=== PATIENT | female | born 1950 | race Caucasian/White ===

== ENCOUNTER 2019-03-21 18:34 | Emergency (ER) | payer MEDICARE, OTHER ==
--- NOTE | 2019-03-21 18:47 | ER Document Report ---
ED Medical Screen (RME) - General Chief Complaint: S/S of Possible Stroke Stated Complaint: POSSIBLE STROKE Time Seen by Provider: 03/21/19 18:45 Primary Care Provider: JAYSON NESBITT [Primary Care Provider] - Follow up as needed Mode of Arrival: Wheelchair Information source: Patient Notes: Patient presents to the emergency department with complaints of left arm numb a nd feeling weak and dizzy today. Reports left arm was normal last night but it felt better today at approximately 2:00 she started feeling weak and dizzy. No complaints of vomiting diarrhea. Patient has had multiple strokes in the past. Son reports patient's voice is slurred. I have greeted and performed a rapid initial assessment of this patient. A comprehensive ED assessment and evaluation of the patient, analysis of test results and completion of the medical decision making process will be conducted by additional ED providers. Dictation of this chart was performed using voice recognition software; therefore, there may be some unintended grammatical errors. TRAVEL OUTSIDE OF THE [place] IN LAST 30 DAYS: No - Related Data Allergies/Adverse Reactions: fish oil Allergy (Verified 03/21/19 18:35) Physical Exam - Vital signs Vitals: Temp Pulse Resp BP Pulse Ox 97.6 F 75 16 147/66 H 96 03/21/19 18:36 03/21/19 18:36 03/21/19 18:36 03/21/19 18:36 03/21/19 18:36 Course - Vital Signs Vital signs: Temp Pulse Resp BP Pulse Ox 97.6 F 75 16 147/66 H 96 03/21/19 18:36 03/21/19 18:36 03/21/19 18:36 03/21/19 18:36 03/21/19 18:36 Doctor's Discharge - Discharge Referrals: JAYSON NESBITT [Primary Care Provider] - Follow up as needed
--- NOTE | 2019-03-21 19:08 | RADIOLOGY REPORT (SQ) ---
EXAM DESCRIPTION: CT HEAD WITHOUT COMPLETED DATE/TIME: 03/21/2019 6:55 pm REASON FOR STUDY: stroke COMPARISON: None. TECHNIQUE: Axial images acquired through the brain without intravenous contrast. Images reviewed wi th bone, brain and subdural windows. Additional sagittal and coronal reconstructions were generated. Images stored on PACS. All CT scanners at this facility use dose modulation, iterative reconstruction, and/or weight based d osing when appropriate to reduce radiation dose to as low as reasonably achievable (ALARA). [facility]: Dose Right [facility]: CareDose [facility]: Dose Right [facility]: Teradose 4D [facility]: Smart Viropro RADIATION DOSE: CT Rad equipment meets quality standard of care and radiation dose reduction techniq ues were employed. CTDIvol: 53.2 mGy. DLP: 1017 mGy-cm. mGy. LIMITATIONS: None. FINDINGS: VENTRICLES: Normal size and contour. CEREBRUM: No masses. No hemorrhage. No midline shift. Small area of asymmetric hypoattenuation of the posterior left frontal parietal region. Few scattered areas of low density in the white matter mo st likely chronic small vessel ischemic changes. CEREBELLUM: No masses. No hemorrhage. No alteration of density. No evidence for acute infarction. EXTRAAXIAL SPACES: No fluid collections. No masses. ORBITS AND GLOBE: No intra- or extraconal masses. Normal contour of globe without masses. CALVARIUM: No fracture. PARANASAL SINUSES: No fluid or mucosal thickening. SOFT TISSUES: No mass or hematoma. OTHER: No other significant finding. IMPRESSION: 1. Small asymmetric area of hypoattenuation in the left frontoparietal region which may represent age -indeterminate infarct. 2. Mild chronic microvascular ischemic disease. EVIDENCE OF ACUTE STROKE: NO. COMMENT: This report was called to Dr. Andrews at19:03 on 03/21/2019. Quality ID # [id number]: Final reports with documentation of one or more dose reduction techniques (e.g., Au tomated exposure control, adjustment of the mA and/or kV according to patient size, use of iterative reconstruction technique) TECHNICAL DOCUMENTATION: JOB ID: [id number]- All Rights Reserved Reading location - IP/workstation name: [email or web address]
--- NOTE | 2019-03-21 19:08 | RADIOLOGY REPORT (SQ) ---
EXAM DESCRIPTION: CHEST SINGLE VIEW COMPLETED DATE/TIME: 03/21/2019 7:02 pm REASON FOR STUDY: stroke COMPARISON: None. EXAM PARAMETERS: NUMBER OF VIEWS: One view. TECHNIQUE: Single frontal radiographic view of the chest acquired. RADIATION DOSE: NA LIMITATIONS: None. FINDINGS: LUNGS AND PLEURA: No opacities, masses or pneumothorax. No pleural effusion. MEDIASTINUM AND HILAR STRUCTURES: No masses. Contour normal. HEART AND VASCULAR STRUCTURES: Heart normal in size. Normal vasculature. BONES: No acute findings. HARDWARE: None in the chest. OTHER: No other significant finding. IMPRESSION: NO ACUTE RADIOGRAPHIC FINDING IN THE CHEST. TECHNICAL DOCUMENTATION: JOB ID: [id number] [employer]- All Rights Reserved Reading location - IP/workstation name: [email or web address]
[2019-03-21 19:21] LABS: ABSOLUTE BASOPHILS # (AUTO) 0.1 10^3/uL (0.0-0.2); ABSOLUTE EOSINOPHILS # (AUTO) 0.2 10^3/uL (0.0-0.6); ABSOLUTE LYMPHOCYTES (AUTO) 2.4 10^3/uL (0.5-4.7); ABSOLUTE MONOCYTES (AUTO) 0.9 10^3/uL (0.1-1.4); ABSOLUTE NEUT (AUTO) 7.1 10^3/uL (1.7-8.2); BASOPHILS % (AUTO) 0.9 % (0-2); EOSINOPHILS % (AUTO) 2.2 % (0-6); HEMATOCRIT 36.9 % (36.0-47.0); HEMOGLOBIN 12.6 g/dL (12.0-15.5); LYMPHOCYTES % (AUTO) 22.5 % (13-45); MEAN CORPUSCULAR HGB CONC 34.2 g/dL (32.0-36.0); MEAN CORPUSCULAR VOLUME 85 fl (80-97); MONOCYTES % (AUTO) 8.1 % (3-13); PLATELET COUNT 262 10^3/uL (150-450); RED BLOOD COUNT 4.35 10^6/uL (3.72-5.28); RED CELL DISTRIBUTION WIDTH 12.8 % (11.5-14.0); SEGMENTED NEUTROPHILS % (AUTO) 66.3 % (42-78); TOTAL CELLS COUNTED % (AUTO) 100 %; WHITE BLOOD COUNT 10.7 10^3/uL (4.0-10.5)
[2019-03-21 19:23] LABS: INTERNATIONAL RATION (INR) 0.91; PROTHROMBIN TIME 12.7 SEC (11.4-15.4)
[2019-03-21 19:24] LABS: PARTIAL THROMBOPLASTIN TIME 32.3 SEC (23.5-35.8)
[2019-03-21 19:39] LABS: ALANINE AMINOTRANSFERASE 44 U/L (9-52); ALBUMIN 4.3 g/dL (3.5-5.0); ALKALINE PHOSPHATASE 101 U/L (38-126); ANION GAP 10 (5-19); ASPARTATE AMINO TRANSFERASE 33 U/L (14-36); BILIRUBIN,DIRECT 0.2 mg/dL (0.0-0.4); BILIRUBIN,TOTAL 0.4 mg/dL (0.2-1.3); BLOOD UREA NITROGEN 27 mg/dL (7-20); CALCIUM 9.6 mg/dL (8.4-10.2); CARBON DIOXIDE 30 mmol/L (22-30); CHLORIDE 94 mmol/L (98-107); CREATINE KINASE 94 U/L (30-135); GLUCOSE 130 mg/dL (75-110); POTASSIUM 3.6 mmol/L (3.6-5.0); SODIUM 134.2 mmol/L (137-145); TOTAL PROTEIN 7.4 g/dL (6.3-8.2)
[2019-03-21 19:40] VITALS: BP 147/66
[2019-03-21 19:51] LABS: CREATINE KINASE MB 0.74 ng/mL (<4.55)
[2019-03-21 19:52] LABS: TROPONIN I < 0.012 ng/mL
[2019-03-21] MEDS ORDERED: NORMAL SALINE 1000 ML 500 ML IV ONE (19:57)
--- NOTE | 2019-03-21 20:22 | ER Document Report ---
ED General - General Chief Complaint: S/S of Possible Stroke Stated Complaint: POSSIBLE STROKE Time Seen by Provider: 03/21/19 18:45 Primary Care Provider: JAYSON NESBITT [NO LOCAL MD] - Follow up tomorrow Mode of Arrival: Wheelchair Notes: Patient is a 69-year-old female with a past medical history of prior TIAs and CVA, history of hypertension, presents with general weakness, slowing or slurr ing of her speech, and feeling generally fatigued. Symptoms started earlier today, gradual in onset, progressively worsening. Regarded as severe when their maximal intensity although now currently completely resolved after drinking Gatorade. Patient and family at bedside states that she has had similar symptoms in the past he has become dehydrated and believe this was what was going on as her symptoms are completely resolved after receiving oral rehydration as provided by family. Symptoms were exacerbated by being outside in the heat per patient and family. She denies that any point she had focal weakness or numbness. She has not seen her primary care doctor regarding today's concerns. Denies any chest pain or shortness of breath. States "I feel completely fine" when I asked how she is doing currently. TRAVEL OUTSIDE OF THE [place] IN LAST 30 DAYS: No - Related Data Allergies/Adverse Reactions: fish oil Allergy (Verified 03/21/19 18:35) Past Medical History - General Information source: Patient - Social History Smoking Status: Never Smoker Frequency of alcohol use: None Drug Abuse: None Lives with: Family Family History: Reviewed & Not Pertinent Patient has suicidal ideation: No Patient has homicidal ideation: No Renal/ Medical History: Denies: Hx Peritoneal Dialysis Review of Systems - Review of Systems Notes: Constitutional: Negative for fever. Positive for fatigue HENT: Negative for sore throat. Eyes: Negative for visual changes. Cardiovascular: Negative for chest pain. Respiratory: Negative for shortness of breath. Gastrointestinal: Negative for abdominal pain, vomiting or diarrhea. Genitourinary: Negative for dysuria. Musculoskeletal: Negative for back pain. Skin: Negative for rash. Neurological: Negative for headaches, weakness or numbness. 10 point ROS negative except as marked above and in HPI. Physical Exam - Vital signs Vitals: Temp Pulse Resp BP Pulse Ox 97.6 F 75 16 147/66 H 96 03/21/19 18:36 03/21/19 18:36 03/21/19 18:36 03/21/19 18:36 03/21/19 18:36 Interpretation: Hypertensive Notes: PHYSICAL EXAMINATION: GENERAL: Well-appearing, well-nourished and in no acute distress. HEAD: Atraumatic, normocephalic. EYES: Pupils equal round and reactive to light, extraocular movements intact, sclera anicteric, conjunctiva are normal. ENT: nares patent, oropharynx clear without exudates. Moist mucous membranes. NECK: Normal range of motion, supple without lymphadenopathy LUNGS: Breath sounds clear to auscultation bilaterally and equal. No wheezes rales or rhonchi. HEART: Regular rate and rhythm without murmurs ABDOMEN: Soft, nontender, normoactive bowel sounds. No guarding, no rebound. No masses appreciated. EXTREMITIES: Normal range of motion, no pitting or edema. No cyanosis. NEUROLOGICAL: Face symmetric. Tongue protrudes midline. Extraocular motions intact. Pupils are 2 mm and equally reactive. Normal speech, normal gait. 5 out of 5 strength in both the distal and proximal upper and lower extremities bilaterally. Sensation is grossly intact throughout. Finger to nose testing normal. Pronator drift normal. PSYCH: Normal mood, normal affect. SKIN: Warm, Dry, normal turgor, no rashes or lesions noted. Course - Re-evaluation Re-evalutation: 03/21/19 20:26 Patient presents with feeling lightheaded, weak and dizzy. States that symptoms started earlier today, progressed throughout the day and actually resolved shortly after she got here to the emergency department after her son bought her a Gatorade. She states upon drinking this beverage she began to feel completely better and now denies any symptoms of any kind. She and her son at the bedside both report that she is acting completely at her baseline. The patient has no neurologic deficits of any kind on exam, NIH stroke scale is 0. Her labs are notable for mild prerenal azotemia consistent with probable dehydration as the etiology of patient's symptoms prior to arriving at the hospital today. The patient never noted any focal symptoms of any kind and I do not believe that she was having a TIA or stroke event at any time. Patient and family likewise agree stating that they did not think this was going on either when they came to the emergency department and are unsure of why a code stroke was called on the patient in triage. Of note, triage documentation likewise does not note focal symptoms. CT of the head obtained in triage shows an age-indeterminate infarction but again her symptoms and history are not consistent with an acute stroke and she does not have any symptoms at the time of my evaluation to suggest that this is an acute infarction. She likewise has a history of multitude of TIAs and strokes in the past this is likely an old finding. At this time will discharge with return precautions and follow-up recommendations. Verbal discharge instructions given a the bedside and opportunity for questions given. Medication warnings reviewed. Patient is in agreement with this plan and has verbalized understanding of return precautions and the need for primary care follow-up in the next 24-72 hours. - Vital Signs Vital signs: Temp Pulse Resp BP Pulse Ox 97.6 F 75 16 147/66 H 96 03/21/19 18:36 03/21/19 19:38 03/21/19 19:38 03/21/19 19:38 03/21/19 19:38 - Laboratory Result Diagrams: 03/21/19 19:06 03/21/19 19:06 Laboratory results interpreted by me: 03/21/19 03/21/19 19:06 19:06 WBC 10.7 H Sodium 134.2 L Chloride 94 L BUN 27 H Creatinine 1.37 H Est GFR ( Amer) 46 L Est GFR (Non-Af Amer) 38 L Glucose 130 H - Diagnostic Test Radiology reviewed: Image reviewed, Reports reviewed Radiology results interpreted by me: 03/22/19 04:31 CT head: No acute intercranial bleed or mass Chest x-ray: No acute infiltrate - EKG Interpretation by Me Additional EKG results interpreted by me: 03/22/19 04:31 Sinus rhythm, rate 66, no ST elevations or depressions, QTC is 426. Discharge - Discharge Clinical Impression: Weakness, Dehydration, Prerenal azotemia Fatigue Qualifiers: Fatigue type: unspecified Qualified Code(s): R53.83 - Other fatigue Condition: Good Disposition: HOME, SELF-CARE Additional Instructions: You were seen today for lightheadedness/dizziness. The exact cause of your symptoms is likely related to dehydration although this is not a definitive diagnosis. But your workup here is reassuring without any concerning findings. Please follow closely with your primary care physician in the next 1-3 days. Return if you pass out, have additional episodes of lightheadedness, develop weakness/numbness, have persistent vomiting, chest pain, shortness of breath or any other symptoms that are concerning to you. Please be sure to drink plenty of fluids as your labs do suggest dehydration as part of the reason you are feeling the way were today. Referrals: LOCALMD,NO [NO LOCAL MD] - Follow up tomorrow
--- NOTE | 2019-03-21 23:13 | EKG REPORT ---
SEVERITY:- NORMAL ECG - SINUS RHYTHM : Confirmed by: Steffen Castaneda MD 21-Mar-2019 23:12:24
== END 2019-03-21 20:48 | disposition home or self-care (01) ==
LOC: ER 18:34
DX: R79.89 Other specified abnormal findings of blood chemistry (principal); R53.83 Other fatigue; E86.0 Dehydration; R53.1 Weakness
CPT/HCPCS: 93005; 99285; 36415; 82553; 82550; 85025; 85610; 85730; 80053; 84484; 71045; 70450; 93010; J7030

== ENCOUNTER 2019-04-02 03:15 | Emergency (ER) | payer MEDICARE, OTHER ==
[2019-04-02 03:27] VITALS: BP 138/72
[2019-04-02 05:36] LABS: APPEARANCE,URINE SLIGHTLY-CLOUDY; BILIRUBIN,URINE NEGATIVE (NEGATIVE); COLOR,URINE YELLOW; GLUCOSE, URINE >=500 mg/dL (NEGATIVE); KETONES,URINE NEGATIVE (NEGATIVE); LEUKOCYTE ESTERASE,URINE NEGATIVE (NEGATIVE); NITRITE,URINE NEGATIVE (NEGATIVE); PROTEIN,URINE 30 mg/dL (NEGATIVE); URINE SPECIFIC GRAVITY 1.017; UROBILINOGEN,URINE NEGATIVE mg/dL (<2.0)
[2019-04-02] MEDS ORDERED: NORMAL SALINE 1000 ML 1,000 ML IV ONE (07:47)
[2019-04-02] MEDS ORDERED: METHOCARBAMOL INJ/PF 1000 MG/10 ML SDV IV ONE (07:47)
[2019-04-02] MEDS ORDERED: ONDANSETRON HCL INJ/PF 4 MG/2 ML SDV IV ONE (07:47)
[2019-04-02] MEDS ORDERED: MORPHINE SULFATE 10 MG/ML INJ IV ONE (07:47)
[2019-04-02 08:16] LABS: ABSOLUTE BASOPHILS # (AUTO) 0.1 10^3/uL (0.0-0.2); ABSOLUTE EOSINOPHILS # (AUTO) 0.2 10^3/uL (0.0-0.6); ABSOLUTE LYMPHOCYTES (AUTO) 1.9 10^3/uL (0.5-4.7); ABSOLUTE MONOCYTES (AUTO) 0.4 10^3/uL (0.1-1.4); ABSOLUTE NEUT (AUTO) 4.8 10^3/uL (1.7-8.2); EOSINOPHILS % (AUTO) 3.1 % (0-6); HEMATOCRIT 36.3 % (36.0-47.0); HEMOGLOBIN 12.6 g/dL (12.0-15.5); LYMPHOCYTES % (AUTO) 25.3 % (13-45); MEAN CORPUSCULAR HEMOGLOBIN 29.4 pg (27.0-33.4); MEAN CORPUSCULAR HGB CONC 34.7 g/dL (32.0-36.0); MEAN CORPUSCULAR VOLUME 85 fl (80-97); MONOCYTES % (AUTO) 5.2 % (3-13); PLATELET COUNT 188 10^3/uL (150-450); RED BLOOD COUNT 4.28 10^6/uL (3.72-5.28); RED CELL DISTRIBUTION WIDTH 12.5 % (11.5-14.0); SEGMENTED NEUTROPHILS % (AUTO) 65.4 % (42-78); TOTAL CELLS COUNTED % (AUTO) 100 %; WHITE BLOOD COUNT 7.3 10^3/uL (4.0-10.5)
[2019-04-02 08:38] LABS: ALANINE AMINOTRANSFERASE 30 U/L (9-52); ALBUMIN 4.1 g/dL (3.5-5.0); ALKALINE PHOSPHATASE 101 U/L (38-126); ANION GAP 7 (5-19); ASPARTATE AMINO TRANSFERASE 24 U/L (14-36); BILIRUBIN,DIRECT 0.2 mg/dL (0.0-0.4); BILIRUBIN,TOTAL 0.5 mg/dL (0.2-1.3); BLOOD UREA NITROGEN 24 mg/dL (7-20); CALCIUM 9.8 mg/dL (8.4-10.2); CARBON DIOXIDE 29 mmol/L (22-30); CHLORIDE 103 mmol/L (98-107); CREATINE KINASE 44 U/L (30-135); GLUCOSE 256 mg/dL (75-110); POTASSIUM 4.4 mmol/L (3.6-5.0); TOTAL PROTEIN 7.5 g/dL (6.3-8.2)
[2019-04-02 09:14] LABS: APPEARANCE,URINE CLEAR; BILIRUBIN,URINE NEGATIVE (NEGATIVE); COLOR,URINE STRAW; GLUCOSE, URINE >=500 mg/dL (NEGATIVE); KETONES,URINE NEGATIVE (NEGATIVE); LEUKOCYTE ESTERASE,URINE NEGATIVE (NEGATIVE); NITRITE,URINE NEGATIVE (NEGATIVE); PROTEIN,URINE 30 mg/dL (NEGATIVE); URINE SPECIFIC GRAVITY 1.014; UROBILINOGEN,URINE NEGATIVE mg/dL (<2.0)
--- NOTE | 2019-04-02 09:28 | ER Document Report ---
Entered by MELI NOLEN SCRIBE 04/02/19 0800 Acting as scribe for:OPAL MEHTA MD ED General - General Chief Complaint: Back Pain Stated Complaint: BACK PAIN Time Seen by Provider: 04/02/19 07:10 Notes: Patient is a 69-year-old female with a history of a stroke in July that left her with right-sided deficits presenting to the emergency department complaining of back pain with associated spasms. Patient states that this began yesterday and her spasms started when she laid down, "it was hurting more yesterday but pain is still present". Patient states that she has been helping move boxes all week. Patient states that she went to [facility] in [place] 2 nights ago, they diagnosed her with having a urinary tract infection. Patient states that she was prescribed Keflex for. Patient states that she is currently taking medicine for her hyperlipidemia, hypertension, diabetes mellitus, Protonix for GERD. TRAVEL OUTSIDE OF THE [place] IN LAST 30 DAYS: No - Related Data Allergies/Adverse Reactions: fish oil Allergy (Verified 03/21/19 18:35) Past Medical History - General Information source: Patient - Social History Smoking Status: Never Smoker Cigarette use (# per day): No Chew tobacco use (# tins/day): No Frequency of alcohol use: None Drug Abuse: None Family History: Reviewed & Not Pertinent Patient has suicidal ideation: No Patient has homicidal ideation: No Past Surgical History: Reports: Hx Appendectomy, Hx Hysterectomy, Hx Orthopedic Surgery - 6 back surgeries, Other - Esophageal dilatation Review of Systems - Review of Systems Constitutional: No symptoms reported EENT: No symptoms reported Cardiovascular: No symptoms reported Respiratory: No symptoms reported Gastrointestinal: No symptoms reported Genitourinary: No symptoms reported Female Genitourinary: No symptoms reported Musculoskeletal: See HPI, Back pain, Other - spasms Skin: No symptoms reported Hematologic/Lymphatic: No symptoms reported Neurological/Psychological: No symptoms reported -: Yes All other systems reviewed and negative Physical Exam - Vital signs Vitals: Temp Pulse Resp BP Pulse Ox 97.8 F 86 16 138/72 H 98 04/02/19 03:25 04/02/19 03:25 04/02/19 03:25 04/02/19 03:25 04/02/19 03:25 - Notes Notes: Physical Exam: General: Alert, obese. HEENT: Normocephalic. Atraumatic. PERRL. Extraocular movements intact. Oropharynx clear. Neck: Supple. Non-tender. Respiratory: No respiratory distress. Clear and equal breath sounds bilaterally. Cardiovascular: Regular rate and rhythm. Abdominal: Normal Inspection. Non-tender. No distension. Normal Bowel Sounds. Back: Paravertebral tenderness to palpation. Lumbar 3-5 tenderness to palpation. No deformity or step off. Extremities: Moves all four extremities. Upper extremities: Normal inspection. Normal ROM. Lower extremities: Normal inspection. No edema. Normal ROM. Neurological: Normal cognition. AAOx4. Normal speech. Psychological: Normal affect. Normal Mood. Skin: Warm. Dry. Normal color. Course - Re-evaluation Re-evalutation: 04/02/19 09:44 Review of lab work shows that the patient continues to have prerenal azotemia, slightly better than when she was here of days ago, but she does admit that she has not been drinking water like she is instructed. She has received 1 L of IV fluids, 1 g of Robaxin IV. She is feeling better. - Vital Signs Vital signs: Temp Pulse Resp BP Pulse Ox 97.8 F 86 16 138/72 H 98 04/02/19 03:25 04/02/19 03:25 04/02/19 03:25 04/02/19 03:25 04/02/19 03:25 - Laboratory Result Diagrams: 04/02/19 08:06 04/02/19 08:06 Laboratory results interpreted by me: 04/02/19 04/02/19 04/02/19 05:23 08:06 08:51 BUN 24 H Est GFR (Non-Af Amer) 55 L Glucose 256 H Urine Protein 30 H 30 H Urine Glucose (UA) >=500 H >=500 H Discharge - Discharge Clinical Impression: Back pain of thoracolumbar region Condition: Stable Disposition: HOME, SELF-CARE Additional Instructions: Back Muscle Strains: You have probably strained your back muscles when helping to move to this area. The muscle strain often occurs with strenuous exertion, or during an injury that suddenly stretches the muscle. The seriousness of a strain varies. Some strains heal within days, others cause problems for months. X-rays cannot show a muscle strain. X-rays are taken only if symptoms suggest that a fracture could be present. The usual treatment of a muscle strain is rest and ice packs. Sometimes, a sling, splint, or crutches may be necessary to rest the muscle. The muscle can be used again once pain subsides. Severe strains require a special exercise and stretching program to prevent permanent stiffness and disability. Your doctor will advise you if this will be necessary. Call the doctor immediately if pain or swelling becomes severe, or if numbness or discoloration develop. Your lab work 12 days ago, and again today show that you do not drink nearly enough water to protect your kidneys. You are encouraged to drink plenty of fluids throughout the day every day. Take the Robaxin as prescribed to help with muscle tension and muscle spasms. Take Tylenol for pain as needed. Follow-up with a local medical doctor to help manage your acute and chronic medical problems. RETURN TO THE EMERGENCY ROOM IF ANY NEW OR WORSENING SYMPTOMS. Prescriptions: Methocarbamol [Robaxin 750 mg Tablet] 750 mg PO Q4 #28 tablet Scribe Attestation: 04/02/19 09:39 I personally performed the services described in the documentation, reviewed and edited the documentation which was dictated to the scribe in my presence, and it accurately records my words and actions. I personally performed the services described in the documentation, reviewed and edited the documentation which was dictated to the scribe in my presence, and it accurately records my words and actions.
== END 2019-04-02 10:00 | disposition home or self-care (01) ==
LOC: ER 03:15
DX: M54.89 Other dorsalgia (principal); R25.2 Cramp and spasm; N39.0 Urinary tract infection, site not specified; R79.89 Other specified abnormal findings of blood chemistry; I10 Essential (primary) hypertension; E11.9 Type 2 diabetes mellitus without complications; E78.5 Hyperlipidemia, unspecified; K21.9 Gastro-esophageal reflux disease without esophagitis; Z79.899 Other long term (current) drug therapy
CPT/HCPCS: 99283; 36415; 82550; 85025; 80053; 81001; J2800; J2270; J2405; J7030